=== PATIENT | female | born 1950 | race Caucasian/White ===

== ENCOUNTER 2017-08-11 09:47 | Inpatient (IN) | payer OTHER, MEDICAID, MEDICARE ==
[2017-08-11] MEDS: IPRATROPIUM (NEB) 0.5 MG/2.5 ML AMP INH (10:17)
[2017-08-11] MEDS: ALBUTEROL 0.5% (NEB) 2.5 MG/0.5 ML AMP INH (10:18)
[2017-08-11] MEDS: METHYLPREDNISOLONE 125 MG INJ IV (10:37)
[2017-08-11] MEDS: ASPIRIN 81 MG TAB PO (10:37)
[2017-08-11] MEDS: FUROSEMIDE 40 MG INJ IV ×2 (10:38→18:13)
[2017-08-11 10:49] LABS: ADD MAN DIFF? NO
[2017-08-11 10:57] LABS: WHITE BLOOD COUNT 9.1 10^3/ul (4.8-10.8)
[2017-08-11 10:57] LABS: BASOPHIL # 0.1 10^3/ul (0.0-0.1); BASOPHILS % 0.5 % (0.0-2.0); EOSINOPHILS # 0.3 10^3/ul (0.0-0.5); EOSINOPHILS % 2.9 % (0.0-7.0); HEMOGLOBIN 13.1 g/dl (12.0-16.0); MEAN CORPUSCULAR HEMOGLOBIN 31.6 pg (29.0-33.0); MEAN CORPUSCULAR HGB CONC 34.5 g/dl (32.0-37.0); MEAN CORPUSCULAR VOLUME 91.8 fl (82.0-101.0); MEAN PLATELET VOLUME 8.8 fl (7.4-10.4); MONOCYTE # 0.5 10^3/ul (0.3-0.9); MONOCYTES % 5.2 % (0.0-11.0); NEUTROPHIL # 6.3 10^3/ul (1.6-7.5); NEUTROPHILS % 69.2 % (39.0-77.0); PLATELET COUNT 280 10^3/UL (140-415); RED BLOOD COUNT 4.14 10^6/ul (4.20-5.40); RED CELL DISTRIBUTION WIDTH 11.8 % (11.5-14.5)
[2017-08-11 11:09] LABS: ALANINE AMINOTRANSFERASE 16 IU/L (13-69); ALBUMIN 4.1 g/dl (3.3-4.9); ALBUMIN/GLOBULIN RATIO 1.24; ALKALINE PHOSPHATASE 65 IU/L (42-121); ANION GAP 9 (8-16); ASPARTATE AMINO TRANSFERASE 20 IU/L (15-46); BILIRUBIN,INDIRECT 0.6 mg/dl (0-1.1); BILIRUBIN,TOTAL 0.6 mg/dl (0.2-1.3); BLOOD UREA NITROGEN 20 mg/dl (7-20); CALCIUM 9.7 mg/dl (8.4-10.2); CARBON DIOXIDE 32 mmol/L (21-31); CHLORIDE 103 mmol/L (97-110); CREATININE 0.65 mg/dl (0.44-1.00); GLUCOSE 141 mg/dl (70-220); LIPASE 67 U/L (23-300); POTASSIUM 4.6 mmol/L (3.5-5.1); SODIUM 139 mmol/L (135-144); TOTAL PROTEIN 7.4 g/dl (6.1-8.1)
[2017-08-11 11:21] LABS: B-TYPE NATRIURETIC PEPTIDE 1350 PG/ML (0-125)
[2017-08-11 11:24] LABS: TROPONIN-I < 0.012 ng/ml (0.00-0.12)
[2017-08-11] MEDS ORDERED: MAGNESIUM HYDROXIDE 30ML CUP PO (14:30)
[2017-08-11] MEDS ORDERED: NACL 0.9% 3 ML SYG IV (14:30)
[2017-08-11] MEDS ORDERED: GLUCAGON 1 MG INJ IM (14:30)
[2017-08-11] MEDS ORDERED: GLUCOSE GEL 15 GRAM TUBE BUCCAL (14:30)
[2017-08-11] MEDS ORDERED: ACETAMINOPHEN 500 MG TAB PO (14:30)
[2017-08-11] MEDS ORDERED: DICLOFENAC SODIUM 1% GEL 100 GM TUBE TP (14:30)
[2017-08-11] MEDS ORDERED: HYDROCODONE/APAP (5/325) TAB PO (14:30)
[2017-08-11] MEDS ORDERED: DEXTROSE 50% 50 ML SYRINGE IV ×2 (14:30)
[2017-08-11] MEDS ORDERED: GLUCOSE GEL 15 GRAM TUBE PO ×2 (14:30)
[2017-08-11 14:36] LABS: HEMOGLOBIN A1C 7.6 % (0-5.9)
[2017-08-11] MEDS: ACETAMINOPHEN 325 MG TAB PO (17:49)
[2017-08-11] MEDS: INSULIN ASPART [NOVOLOG] 3 ML PEN SC ×5 (17:59→23:22)
[2017-08-11 19:30] LABS: TROPONIN-I < 0.012 ng/ml (0.00-0.12)
[2017-08-11] MEDS: MOMETASONE 0.24 GM INHALER INH (20:51)
[2017-08-11] MEDS: CALCIUM CARBONATE 1.25 GM TAB PO (20:53)
[2017-08-11] MEDS: GABAPENTIN 100 MG CAP PO (20:53)
[2017-08-11] MEDS: MONTELUKAST 10 MG TAB PO (20:53)
[2017-08-11] MEDS ORDERED: GABAPENTIN 300 MG CAP PO (21:00)
[2017-08-11 22:34] LABS: GLUCOSE 485 mg/dl (70-220)
[2017-08-12 01:49] LABS: TROPONIN-I < 0.012 ng/ml (0.00-0.12)
[2017-08-12] MEDS: ACCU-CHEK XX (02:00)
[2017-08-12] MEDS: ALBUMIN HUMAN 25% 100 ML IV (05:24)
[2017-08-12] MEDS: FUROSEMIDE 40 MG INJ IV ×3 (05:25→18:21)
[2017-08-12 07:37] LABS: ADD MAN DIFF? NO
[2017-08-12 07:42] LABS: WHITE BLOOD COUNT 10.6 10^3/ul (4.8-10.8)
[2017-08-12 07:42] LABS: BASOPHILS % 0.3 % (0.0-2.0); HEMATOCRIT 32.8 % (37.0-47.0); HEMOGLOBIN 11.4 g/dl (12.0-16.0); LYMPHOCYTES # 1.9 10^3/ul (0.8-2.9); MEAN CORPUSCULAR HEMOGLOBIN 31.2 pg (29.0-33.0); MEAN CORPUSCULAR HGB CONC 34.8 g/dl (32.0-37.0); MEAN CORPUSCULAR VOLUME 89.9 fl (82.0-101.0); MONOCYTE # 0.5 10^3/ul (0.3-0.9); MONOCYTES % 4.8 % (0.0-11.0); NEUTROPHIL # 8.1 10^3/ul (1.6-7.5); NEUTROPHILS % 76.6 % (39.0-77.0); PLATELET COUNT 255 10^3/UL (140-415); RED BLOOD COUNT 3.65 10^6/ul (4.20-5.40); RED CELL DISTRIBUTION WIDTH 11.7 % (11.5-14.5)
[2017-08-12 08:05] LABS: ANION GAP 19 (8-16); BLOOD UREA NITROGEN 31 mg/dl (7-20); CALCIUM 10.2 mg/dl (8.4-10.2); CARBON DIOXIDE 27 mmol/L (21-31); CHLORIDE 97 mmol/L (97-110); CREATININE 0.67 mg/dl (0.44-1.00); GLUCOSE 230 mg/dl (70-220); MAGNESIUM 1.5 mg/dl (1.7-2.5); SODIUM 139 mmol/L (135-144)
[2017-08-12] MEDS: ENOXAPARIN 40 MG/0.4 ML SYG SC (08:25)
[2017-08-12] MEDS: INSULIN GLARGINE [LANtus] 3 ML PEN SC (08:26)
[2017-08-12] MEDS: INSULIN ASPART [NOVOLOG] 3 ML PEN SC ×7 (08:26→21:19)
[2017-08-12] MEDS: CALCIUM CARBONATE 1.25 GM TAB PO ×2 (08:30→21:15)
[2017-08-12] MEDS: CITALOPRAM 20 MG TAB PO (08:39)
[2017-08-12] MEDS: ASPIRIN (EC) 81 MG TAB PO (08:40)
[2017-08-12] MEDS: GABAPENTIN 100 MG CAP PO ×3 (08:40→21:15)
[2017-08-12] MEDS: MOMETASONE 0.24 GM INHALER INH ×2 (08:40→21:12)
[2017-08-12] MEDS: FAMOTIDINE 20 MG TAB PO (08:40)
[2017-08-12] MEDS ORDERED: LOSARTAN 50 MG TAB PO (09:00)
[2017-08-12] MEDS: MAGNESIUM OXIDE 400 MG TAB PO ×2 (11:44→14:06)
[2017-08-12] MEDS: ALBUTEROL HFA 8 GM INHALER INH (14:31)
[2017-08-12] MEDS ORDERED: NITROGLYCERIN (SL) 0.4 MG TAB (16:01)
[2017-08-12] MEDS ORDERED: morphine 2 MG INJ (16:02)
[2017-08-12] MEDS: NITROGLYCERIN (SL) 0.4 MG TAB SL (16:06)
[2017-08-12] MEDS: morphine 2 MG INJ IV (16:07)
[2017-08-12 16:18] LABS: ADD MAN DIFF? NO
[2017-08-12 16:21] LABS: WHITE BLOOD COUNT 17.1 10^3/ul (4.8-10.8)
[2017-08-12 16:21] LABS: BASOPHIL # 0.1 10^3/ul (0.0-0.1); BASOPHILS % 0.4 % (0.0-2.0); EOSINOPHILS # 0.1 10^3/ul (0.0-0.5); EOSINOPHILS % 0.3 % (0.0-7.0); HEMATOCRIT 37.2 % (37.0-47.0); HEMOGLOBIN 12.8 g/dl (12.0-16.0); LYMPHOCYTES # 4.5 10^3/ul (0.8-2.9); LYMPHOCYTES % 26.3 % (15.0-51.0); MEAN CORPUSCULAR HEMOGLOBIN 31.1 pg (29.0-33.0); MEAN CORPUSCULAR HGB CONC 34.4 g/dl (32.0-37.0); MEAN CORPUSCULAR VOLUME 90.3 fl (82.0-101.0); MEAN PLATELET VOLUME 8.2 fl (7.4-10.4); MONOCYTE # 0.5 10^3/ul (0.3-0.9); MONOCYTES % 3.2 % (0.0-11.0); NEUTROPHIL # 11.8 10^3/ul (1.6-7.5); NEUTROPHILS % 69.3 % (39.0-77.0); PLATELET COUNT 277 10^3/UL (140-415); RED BLOOD COUNT 4.12 10^6/ul (4.20-5.40); RED CELL DISTRIBUTION WIDTH 11.7 % (11.5-14.5)
[2017-08-12 16:44] LABS: ANION GAP 16 (8-16); BLOOD UREA NITROGEN 35 mg/dl (7-20); CALCIUM 9.9 mg/dl (8.4-10.2); CARBON DIOXIDE 32 mmol/L (21-31); CHLORIDE 93 mmol/L (97-110); CREATINE KINASE 46 IU/L (23-200); CREATININE 0.87 mg/dl (0.44-1.00); GLUCOSE 230 mg/dl (70-220); POTASSIUM 4.2 mmol/L (3.5-5.1); SODIUM 137 mmol/L (135-144)
[2017-08-12 16:45] LABS: MAGNESIUM 1.6 mg/dl (1.7-2.5)
[2017-08-12 16:56] LABS: CK INDEX 2.3; CK-MB 1.06 ng/ml (0.0-2.4)
[2017-08-12 17:02] LABS: TROPONIN-I < 0.012 ng/ml (0.00-0.12)
[2017-08-12] MEDS: MAGNESIUM SULFATE 2 GM/50 ML 50 ML IVPB (18:00)
[2017-08-12] MEDS: ENOXAPARIN 100 MG/ML SYG SC (18:20)
[2017-08-12 18:24] LABS: AADO2 Arterial 515.2 mmHg (7.0-24.0); Allen Test ACCEPTAB; Arterial Blood Gas Oxygen Sat 98.9 mmHG (95.0-98.0); Arterial COHb 0.3 % (0.0-3.0); Arterial Fraction of Oxyhgb 98.3 % (93.0-99.0); Arterial HCO3 29.9 mmol/L (22.0-26.0); Arterial MetHb 0.3 % (0.0-1.5); Arterial Total Hemglobin 13.2 g/dl (12.0-18.0); Arterial pCO2 50.6 mmhg (35-45); MODE MASK - NRB; Site Left Radial
[2017-08-12] MEDS ORDERED: ENOXAPARIN 100 MG/ML SYG SC (21:00)
[2017-08-12] MEDS: MONTELUKAST 10 MG TAB PO (21:15)
[2017-08-12 23:20] LABS: CREATINE KINASE 62 IU/L (23-200)
[2017-08-12 23:33] LABS: CK INDEX 2.4; CK-MB 1.49 ng/ml (0.0-2.4); TROPONIN-I 0.032 ng/ml (0.00-0.12)
[2017-08-13] MEDS: ACETAMINOPHEN 325 MG TAB PO (01:39)
[2017-08-13] MEDS: ACCU-CHEK XX (02:14)
[2017-08-13] MEDS: FUROSEMIDE 40 MG INJ IV ×2 (06:19→18:03)
[2017-08-13 06:48] LABS: ADD MAN DIFF? NO
[2017-08-13 06:51] LABS: BASOPHILS % 0.4 % (0.0-2.0); EOSINOPHILS # 0.1 10^3/ul (0.0-0.5); EOSINOPHILS % 1.3 % (0.0-7.0); HEMATOCRIT 35.9 % (37.0-47.0); HEMOGLOBIN 12.2 g/dl (12.0-16.0); LYMPHOCYTES # 2.3 10^3/ul (0.8-2.9); LYMPHOCYTES % 21.4 % (15.0-51.0); MEAN CORPUSCULAR HEMOGLOBIN 31.3 pg (29.0-33.0); MEAN CORPUSCULAR VOLUME 92.1 fl (82.0-101.0); MEAN PLATELET VOLUME 8.8 fl (7.4-10.4); MONOCYTE # 0.5 10^3/ul (0.3-0.9); MONOCYTES % 4.8 % (0.0-11.0); NEUTROPHIL # 7.8 10^3/ul (1.6-7.5); NEUTROPHILS % 71.8 % (39.0-77.0); PLATELET COUNT 255 10^3/UL (140-415); RED CELL DISTRIBUTION WIDTH 11.8 % (11.5-14.5)
[2017-08-13 06:51] LABS: WHITE BLOOD COUNT 10.8 10^3/ul (4.8-10.8)
[2017-08-13 07:10] LABS: CREATINE KINASE 50 IU/L (23-200)
[2017-08-13 07:13] LABS: ALANINE AMINOTRANSFERASE 18 IU/L (13-69); ALBUMIN 3.9 g/dl (3.3-4.9); ALBUMIN/GLOBULIN RATIO 1.39; ALKALINE PHOSPHATASE 55 IU/L (42-121); ANION GAP 14 (8-16); ASPARTATE AMINO TRANSFERASE 15 IU/L (15-46); BILIRUBIN,INDIRECT 1.3 mg/dl (0-1.1); BILIRUBIN,TOTAL 1.3 mg/dl (0.2-1.3); BLOOD UREA NITROGEN 36 mg/dl (7-20); CALCIUM 9.4 mg/dl (8.4-10.2); CARBON DIOXIDE 34 mmol/L (21-31); CHLORIDE 93 mmol/L (97-110); CREATININE 0.76 mg/dl (0.44-1.00); GLUCOSE 262 mg/dl (70-220); MAGNESIUM 1.6 mg/dl (1.7-2.5); PHOSPHORUS 5.3 mg/dl (2.5-4.9); POTASSIUM 3.9 mmol/L (3.5-5.1); SODIUM 137 mmol/L (135-144); TOTAL PROTEIN 6.7 g/dl (6.1-8.1)
[2017-08-13 07:20] LABS: CK INDEX 2.9; CK-MB 1.44 ng/ml (0.0-2.4); TROPONIN-I 0.031 ng/ml (0.00-0.12)
[2017-08-13] MEDS: MOMETASONE 0.24 GM INHALER INH ×2 (08:34→20:42)
[2017-08-13] MEDS: GABAPENTIN 100 MG CAP PO ×3 (08:35→20:42)
[2017-08-13] MEDS: CALCIUM CARBONATE 1.25 GM TAB PO ×2 (08:35→20:43)
[2017-08-13] MEDS: CITALOPRAM 20 MG TAB PO (08:35)
[2017-08-13] MEDS: ASPIRIN (EC) 81 MG TAB PO (08:35)
[2017-08-13] MEDS: FAMOTIDINE 20 MG TAB PO (08:35)
[2017-08-13] MEDS: INSULIN ASPART [NOVOLOG] 3 ML PEN SC ×7 (08:46→21:49)
[2017-08-13] MEDS: INSULIN GLARGINE [LANtus] 3 ML PEN SC (08:47)
[2017-08-13] MEDS: ENOXAPARIN 40 MG/0.4 ML SYG SC (08:47)
[2017-08-13] MEDS: LOSARTAN 50 MG TAB PO (17:25)
[2017-08-13] MEDS: MONTELUKAST 10 MG TAB PO (20:43)
[2017-08-14] MEDS: ACCU-CHEK XX (02:00)
[2017-08-14 06:43] LABS: ADD MAN DIFF? NO
[2017-08-14 06:46] LABS: WHITE BLOOD COUNT 7.5 10^3/ul (4.8-10.8)
[2017-08-14 06:46] LABS: BASOPHILS % 0.4 % (0.0-2.0); EOSINOPHILS # 0.1 10^3/ul (0.0-0.5); EOSINOPHILS % 1.5 % (0.0-7.0); HEMATOCRIT 36.4 % (37.0-47.0); HEMOGLOBIN 12.4 g/dl (12.0-16.0); LYMPHOCYTES # 2.2 10^3/ul (0.8-2.9); LYMPHOCYTES % 28.7 % (15.0-51.0); MEAN CORPUSCULAR HEMOGLOBIN 31.3 pg (29.0-33.0); MEAN CORPUSCULAR HGB CONC 34.1 g/dl (32.0-37.0); MEAN CORPUSCULAR VOLUME 91.9 fl (82.0-101.0); MEAN PLATELET VOLUME 8.8 fl (7.4-10.4); MONOCYTE # 0.4 10^3/ul (0.3-0.9); MONOCYTES % 5.1 % (0.0-11.0); NEUTROPHIL # 4.8 10^3/ul (1.6-7.5); PLATELET COUNT 254 10^3/UL (140-415); RED BLOOD COUNT 3.96 10^6/ul (4.20-5.40); RED CELL DISTRIBUTION WIDTH 11.6 % (11.5-14.5)
[2017-08-14] MEDS: FUROSEMIDE 40 MG INJ IV ×2 (07:01→17:45)
[2017-08-14 07:08] LABS: ANION GAP 16 (8-16); BLOOD UREA NITROGEN 32 mg/dl (7-20); CALCIUM 9.4 mg/dl (8.4-10.2); CARBON DIOXIDE 35 mmol/L (21-31); CHLORIDE 95 mmol/L (97-110); CREATININE 0.67 mg/dl (0.44-1.00); GLUCOSE 177 mg/dl (70-220); PHOSPHORUS 3.2 mg/dl (2.5-4.9); POTASSIUM 3.9 mmol/L (3.5-5.1); SODIUM 142 mmol/L (135-144)
[2017-08-14] MEDS: CITALOPRAM 20 MG TAB PO (08:23)
[2017-08-14] MEDS: CALCIUM CARBONATE 1.25 GM TAB PO ×2 (08:23→20:30)
[2017-08-14] MEDS: FAMOTIDINE 20 MG TAB PO (08:23)
[2017-08-14] MEDS: ASPIRIN (EC) 81 MG TAB PO (08:24)
[2017-08-14] MEDS: GABAPENTIN 100 MG CAP PO ×3 (08:24→20:30)
[2017-08-14] MEDS: MOMETASONE 0.24 GM INHALER INH ×2 (08:25→20:31)
[2017-08-14] MEDS: LOSARTAN 50 MG TAB PO (08:25)
[2017-08-14] MEDS: INSULIN ASPART [NOVOLOG] 3 ML PEN SC ×7 (08:42→20:41)
[2017-08-14] MEDS: ENOXAPARIN 40 MG/0.4 ML SYG SC (08:42)
[2017-08-14] MEDS: INSULIN GLARGINE [LANtus] 3 ML PEN SC (08:43)
[2017-08-14] MEDS ORDERED: LOSARTAN 50 MG TAB PO (09:00)
[2017-08-14] MEDS: ACETAMINOPHEN 325 MG TAB PO (17:44)
[2017-08-14] MEDS: MONTELUKAST 10 MG TAB PO (20:30)
[2017-08-14] MEDS: AMIODARONE 200 MG TAB PO (22:40)
[2017-08-15] MEDS: ACCU-CHEK XX (02:00)
[2017-08-15] MEDS: FUROSEMIDE 40 MG INJ IV (06:00)
[2017-08-15 07:44] LABS: ANION GAP 15 (8-16); BLOOD UREA NITROGEN 33 mg/dl (7-20); CALCIUM 9.1 mg/dl (8.4-10.2); CARBON DIOXIDE 33 mmol/L (21-31); CHLORIDE 95 mmol/L (97-110); CREATININE 0.67 mg/dl (0.44-1.00); GLUCOSE 187 mg/dl (70-220); MAGNESIUM 1.9 mg/dl (1.7-2.5); PHOSPHORUS 3.2 mg/dl (2.5-4.9); POTASSIUM 3.8 mmol/L (3.5-5.1); SODIUM 139 mmol/L (135-144)
[2017-08-15] MEDS: ASPIRIN (EC) 81 MG TAB PO (08:39)
[2017-08-15] MEDS: CITALOPRAM 20 MG TAB PO (08:39)
[2017-08-15] MEDS: GABAPENTIN 100 MG CAP PO ×3 (08:39→20:59)
[2017-08-15] MEDS: FAMOTIDINE 20 MG TAB PO (08:40)
[2017-08-15] MEDS: LOSARTAN 50 MG TAB PO (08:40)
[2017-08-15] MEDS: CALCIUM CARBONATE 1.25 GM TAB PO ×2 (08:40→20:59)
[2017-08-15] MEDS: ENOXAPARIN 40 MG/0.4 ML SYG SC (08:51)
[2017-08-15] MEDS: INSULIN GLARGINE [LANtus] 3 ML PEN SC (08:52)
[2017-08-15] MEDS: INSULIN ASPART [NOVOLOG] 3 ML PEN SC ×7 (08:52→20:59)
[2017-08-15] MEDS: MOMETASONE 0.24 GM INHALER INH ×2 (12:41→20:59)
[2017-08-15] MEDS: MONTELUKAST 10 MG TAB PO (20:59)
[2017-08-16] MEDS: ACCU-CHEK XX (02:00)
[2017-08-16] MEDS: GABAPENTIN 100 MG CAP PO ×3 (08:09→21:22)
[2017-08-16] MEDS: CITALOPRAM 20 MG TAB PO (08:10)
[2017-08-16] MEDS: DOCUSATE SODIUM 100 MG CAP PO (08:10)
[2017-08-16] MEDS: CALCIUM CARBONATE 1.25 GM TAB PO ×2 (08:10→21:22)
[2017-08-16] MEDS: ASPIRIN (EC) 81 MG TAB PO (08:10)
[2017-08-16] MEDS: FAMOTIDINE 20 MG TAB PO (08:10)
[2017-08-16] MEDS: BISACODYL (EC) 5 MG TAB PO (08:10)
[2017-08-16] MEDS: MOMETASONE 0.24 GM INHALER INH ×2 (08:11→21:22)
[2017-08-16] MEDS: INSULIN ASPART [NOVOLOG] 3 ML PEN SC ×7 (08:17→21:00)
[2017-08-16] MEDS: ENOXAPARIN 40 MG/0.4 ML SYG SC (08:17)
[2017-08-16] MEDS: INSULIN GLARGINE [LANtus] 3 ML PEN SC (08:18)
[2017-08-16] MEDS: LOSARTAN 25 MG TAB PO (12:08)
[2017-08-16] MEDS: FUROSEMIDE 40 MG INJ IV (12:08)
[2017-08-16] MEDS: MONTELUKAST 10 MG TAB PO (21:22)
[2017-08-16] MEDS: ACETAMINOPHEN 325 MG TAB PO (21:22)
[2017-08-17] MEDS: ACCU-CHEK XX (02:00)
[2017-08-17] MEDS: CITALOPRAM 20 MG TAB PO (08:11)
[2017-08-17] MEDS: LOSARTAN 25 MG TAB PO (08:11)
[2017-08-17] MEDS: CALCIUM CARBONATE 1.25 GM TAB PO (08:11)
[2017-08-17] MEDS: FAMOTIDINE 20 MG TAB PO (08:11)
[2017-08-17] MEDS: ASPIRIN (EC) 81 MG TAB PO (08:11)
[2017-08-17] MEDS: GABAPENTIN 100 MG CAP PO ×2 (08:11→12:19)
[2017-08-17] MEDS: FUROSEMIDE 40 MG INJ IV (08:12)
[2017-08-17] MEDS: MOMETASONE 0.24 GM INHALER INH (08:12)
[2017-08-17] MEDS: INSULIN GLARGINE [LANtus] 3 ML PEN SC (08:16)
[2017-08-17] MEDS: INSULIN ASPART [NOVOLOG] 3 ML PEN SC ×4 (08:16→12:36)
[2017-08-17] MEDS: ENOXAPARIN 40 MG/0.4 ML SYG SC (08:16)
== END 2017-08-17 17:32 | disposition home or self-care (01) | DRG 292 ==
LOC: E/R 09:47 → TEL 12:09
DX: I11.0 Hypertensive heart disease with heart failure (principal); E87.2 Acidosis; I47.2 Ventricular tachycardia; I50.23 Acute on chronic systolic (congestive) heart failure; I42.9 Cardiomyopathy, unspecified; E11.9 Type 2 diabetes mellitus without complications; F32.9 Major depressive disorder, single episode, unspecified; Z79.4 Long term (current) use of insulin; K21.9 Gastro-esophageal reflux disease without esophagitis
CPT/HCPCS: 36415; 36600; 71045; 74018; 80048; 80053; 82550; 82553; 82803; 82947; 82962; 83036; 83690; 83735; 83880; 84100; 84484; 85025; 85378; 87400; 92610; 93005; 93306; 94644; 96374; 96375; 97161; 99285-25

== ENCOUNTER 2017-10-12 16:19 | Emergency (ER) | payer OTHER ==
[2017-10-12 19:53] LABS: ADD MAN DIFF? NO
[2017-10-12 19:55] LABS: WHITE BLOOD COUNT 8.6 10^3/ul (4.8-10.8)
[2017-10-12 19:55] LABS: BASOPHIL # 0.1 10^3/ul (0.0-0.1); BASOPHILS % 0.8 % (0.0-2.0); EOSINOPHILS # 0.2 10^3/ul (0.0-0.5); EOSINOPHILS % 2.7 % (0.0-7.0); HEMATOCRIT 37.9 % (37.0-47.0); HEMOGLOBIN 12.8 g/dl (12.0-16.0); LYMPHOCYTES # 2.8 10^3/ul (0.8-2.9); LYMPHOCYTES % 32.2 % (15.0-51.0); MEAN CORPUSCULAR HEMOGLOBIN 31.8 pg (29.0-33.0); MEAN CORPUSCULAR HGB CONC 33.8 g/dl (32.0-37.0); MEAN PLATELET VOLUME 8.6 fl (7.4-10.4); MONOCYTE # 0.6 10^3/ul (0.3-0.9); MONOCYTES % 7.3 % (0.0-11.0); NEUTROPHIL # 4.9 10^3/ul (1.6-7.5); NEUTROPHILS % 56.8 % (39.0-77.0); PLATELET COUNT 313 10^3/UL (140-415); RED BLOOD COUNT 4.03 10^6/ul (4.20-5.40); RED CELL DISTRIBUTION WIDTH 12.3 % (11.5-14.5)
[2017-10-12] MEDS: ONDANSETRON 4 MG INJ IV (19:56)
[2017-10-12] MEDS: KETOROLAC 15 MG INJ IV (19:56)
[2017-10-12 20:02] LABS: ADD UMIC NO; UR AMORPHOUS CRYSTAL FEW /HPF (NONE SEEN); UR ASCORBIC ACID NEGATIVE (NEGATIVE); UR BILIRUBIN (Dip) NEGATIVE (NEGATIVE); UR BLOOD (Dip) NEGATIVE (NEGATIVE); UR CLARITY SLIGHTLY CLOUDY (CLEAR); UR COLOR STRAW (YELLOW); UR GLUCOSE (Dip) 1+ mg/dL (NEGATIVE); UR KETONES (Dip) NEGATIVE (NEGATIVE); UR LEUKOCYTE ESTERASE (Dip) NEGATIVE Leu/ul (NEGATIVE); UR NITRITE (Dip) NEGATIVE (NEGATIVE); UR RBC 1 /HPF (0-5); UR SPECIFIC GRAVITY (Dip) 1.011 (1.003-1.030); UR SQUAMOUS EPITHELIAL CELL FEW /HPF (FEW); UR TOTAL PROTEIN (Dip) NEGATIVE (NEGATIVE); UR UROBILINOGEN (Dip) NEGATIVE (NEGATIVE); UR WBC 1 /HPF (0-5)
[2017-10-12 20:04] LABS: ALANINE AMINOTRANSFERASE 21 IU/L (13-69); ALBUMIN 4.4 g/dl (3.3-4.9); ALBUMIN/GLOBULIN RATIO 1.18; ALKALINE PHOSPHATASE 88 IU/L (42-121); ANION GAP 14 (8-16); ASPARTATE AMINO TRANSFERASE 25 IU/L (15-46); BILIRUBIN,INDIRECT 0.7 mg/dl (0-1.1); BILIRUBIN,TOTAL 0.7 mg/dl (0.2-1.3); BLOOD UREA NITROGEN 16 mg/dl (7-20); CALCIUM 9.7 mg/dl (8.4-10.2); CARBON DIOXIDE 32 mmol/L (21-31); CHLORIDE 98 mmol/L (97-110); CREATININE 0.66 mg/dl (0.44-1.00); GLUCOSE 238 mg/dl (70-220); LIPASE 87 U/L (23-300); POTASSIUM 4.4 mmol/L (3.5-5.1); SODIUM 140 mmol/L (135-144); TOTAL PROTEIN 8.1 g/dl (6.1-8.1)
[2017-10-12 20:13] LABS: B-TYPE NATRIURETIC PEPTIDE 738 PG/ML (0-125)
[2017-10-12 20:14] LABS: TROPONIN-I < 0.012 ng/ml (0.000-0.120)
== END 2017-10-12 21:39 | disposition home or self-care (01) ==
LOC: E/R 16:19
DX: G44.209 Tension-type headache, unspecified, not intractable (principal); I10 Essential (primary) hypertension; E11.9 Type 2 diabetes mellitus without complications; I50.9 Heart failure, unspecified; J44.9 Chronic obstructive pulmonary disease, unspecified; Z79.4 Long term (current) use of insulin; Z79.82 Long term (current) use of aspirin; Z95.0 Presence of cardiac pacemaker
CPT/HCPCS: 36415; 71045; 80053; 81001; 81003; 83690; 83880; 84484; 85025; 93005; 96374; 96375; 99284-25

== ENCOUNTER 2018-03-10 02:42 | Observation (INO) | payer OTHER, MEDICAID ==
[2018-03-10] MEDS: MECLIZINE 12.5 MG TAB PO (05:00)
[2018-03-10 05:13] LABS: ADD MAN DIFF? NO
[2018-03-10 05:14] LABS: WHITE BLOOD COUNT 7.4 10^3/ul (4.8-10.8)
[2018-03-10 05:14] LABS: BASOPHILS % 0.5 % (0.0-2.0); EOSINOPHILS # 0.3 10^3/ul (0.0-0.5); EOSINOPHILS % 3.9 % (0.0-7.0); HEMATOCRIT 38.6 % (37.0-47.0); LYMPHOCYTES # 2.5 10^3/ul (0.8-2.9); MEAN CORPUSCULAR HEMOGLOBIN 32.3 pg (29.0-33.0); MEAN CORPUSCULAR HGB CONC 33.7 g/dl (32.0-37.0); MEAN CORPUSCULAR VOLUME 95.8 fl (82.0-101.0); MEAN PLATELET VOLUME 9.2 fl (7.4-10.4); MONOCYTE # 0.5 10^3/ul (0.3-0.9); MONOCYTES % 6.4 % (0.0-11.0); NEUTROPHIL # 4.1 10^3/ul (1.6-7.5); NEUTROPHILS % 54.9 % (39.0-77.0); PLATELET COUNT 252 10^3/UL (140-415); RED BLOOD COUNT 4.03 10^6/ul (4.20-5.40)
[2018-03-10 05:21] LABS: ANION GAP 7 (5-13); BLOOD UREA NITROGEN 14 mg/dl (7-20); CALCIUM 9.1 mg/dl (8.4-10.2); CARBON DIOXIDE 31 mmol/L (21-31); CHLORIDE 103 mmol/L (97-110); CREATININE 0.63 mg/dl (0.44-1.00); Estimated GFR > 60 mL/min (>60); GLUCOSE 114 mg/dl (70-220); MAGNESIUM 1.9 mg/dl (1.7-2.5); POTASSIUM 4.4 mmol/L (3.5-5.1); SODIUM 141 mmol/L (135-144)
[2018-03-10 05:33] LABS: B-TYPE NATRIURETIC PEPTIDE 476 PG/ML (0-125); TROPONIN-I < 0.012 ng/ml (0.000-0.120)
[2018-03-10] MEDS ORDERED: SOD CHLORIDE 0.9% 1,000 ML IV (06:24)
[2018-03-10] MEDS ORDERED: ONDANSETRON (ODT) 4 MG TAB ODT (06:30)
[2018-03-10] MEDS ORDERED: ACETAMINOPHEN 500 MG TAB PO (06:30)
[2018-03-10] MEDS ORDERED: NACL 0.9% 3 ML SYG IV (06:30)
[2018-03-10] MEDS ORDERED: ALBUTEROL HFA 8 GM INHALER INH (06:30)
[2018-03-10] MEDS ORDERED: SOD CHLORIDE 0.9% 500 ML IV (07:00)
[2018-03-10 09:17] LABS: CREATINE KINASE 22 IU/L (23-200)
[2018-03-10 09:30] LABS: CK INDEX 3.2; CK-MB 0.71 ng/ml (0.0-2.4); TROPONIN-I < 0.012 ng/ml (0.000-0.120)
[2018-03-10 09:34] LABS: FREE T4 (FREE THYROXINE) 0.97 ng/dl (0.78-2.44)
[2018-03-10 09:35] LABS: FREE T3 3.97 pg/ml (2.77-5.27)
[2018-03-10] MEDS: FAMOTIDINE 20 MG TAB PO (10:54)
[2018-03-10] MEDS: CITALOPRAM 20 MG TAB PO (10:54)
[2018-03-10] MEDS: ASPIRIN (EC) 81 MG TAB PO (10:54)
[2018-03-10] MEDS: CALCIUM CARBONATE 1.25 GM TAB PO ×2 (10:55→21:23)
[2018-03-10] MEDS: LOSARTAN 25 MG TAB PO (10:55)
[2018-03-10] MEDS: INSULIN GLARGINE [LANTus] (100 UNITS/ML) SYG SC (11:05)
[2018-03-10] MEDS: INSULIN ASPART [NOVOLOG] 3 ML PEN SC ×3 (11:06→21:35)
[2018-03-10] MEDS: ACETAMINOPHEN 325 MG TAB PO (11:32)
[2018-03-10] MEDS: HEPARIN 5,000 UNIT/1 ML VIAL SC ×2 (14:00→21:34)
[2018-03-10 14:02] LABS: CREATINE KINASE 21 IU/L (23-200)
[2018-03-10 14:14] LABS: CK-MB 0.43 ng/ml (0.0-2.4); TROPONIN-I < 0.012 ng/ml (0.000-0.120)
[2018-03-10] MEDS ORDERED: HEPARIN 5,000 UNIT/0.5 ML VIAL ×2 (15:20→21:18)
[2018-03-10] MEDS ORDERED: GLUCOSE GEL 15 GRAM TUBE PO ×2 (16:30)
[2018-03-10] MEDS ORDERED: GLUCOSE GEL 15 GRAM TUBE BUCCAL (16:30)
[2018-03-10] MEDS ORDERED: GLUCAGON 1 MG INJ IM (16:30)
[2018-03-10] MEDS ORDERED: DEXTROSE 50% 50 ML SYRINGE IV ×2 (16:30)
[2018-03-10 19:11] LABS: CREATINE KINASE 26 IU/L (23-200)
[2018-03-10 19:24] LABS: CK INDEX 2.3; CK-MB 0.61 ng/ml (0.0-2.4); TROPONIN-I < 0.012 ng/ml (0.000-0.120)
[2018-03-10] MEDS: ATORVASTATIN 10 MG TAB PO (21:23)
[2018-03-10] MEDS: MONTELUKAST 10 MG TAB PO (21:24)
[2018-03-11] MEDS: ACCU-CHEK XX (02:00)
[2018-03-11] MEDS ORDERED: HEPARIN 5,000 UNIT/0.5 ML VIAL ×3 (05:28→21:02)
[2018-03-11] MEDS: HEPARIN 5,000 UNIT/1 ML VIAL SC ×3 (05:31→21:06)
[2018-03-11 06:10] LABS: ADD MAN DIFF? NO
[2018-03-11 06:22] LABS: WHITE BLOOD COUNT 5.2 10^3/ul (4.8-10.8)
[2018-03-11 06:22] LABS: BASOPHIL # 0.1 10^3/ul (0.0-0.1); EOSINOPHILS # 0.2 10^3/ul (0.0-0.5); EOSINOPHILS % 4.1 % (0.0-7.0); HEMATOCRIT 36.2 % (37.0-47.0); HEMOGLOBIN 11.9 g/dl (12.0-16.0); LYMPHOCYTES # 2.4 10^3/ul (0.8-2.9); LYMPHOCYTES % 46.7 % (15.0-51.0); MEAN CORPUSCULAR HEMOGLOBIN 31.4 pg (29.0-33.0); MEAN CORPUSCULAR HGB CONC 32.9 g/dl (32.0-37.0); MEAN CORPUSCULAR VOLUME 95.5 fl (82.0-101.0); MEAN PLATELET VOLUME 8.8 fl (7.4-10.4); MONOCYTE # 0.4 10^3/ul (0.3-0.9); MONOCYTES % 8.1 % (0.0-11.0); NEUTROPHIL # 2.1 10^3/ul (1.6-7.5); NEUTROPHILS % 39.9 % (39.0-77.0); PLATELET COUNT 239 10^3/UL (140-415); RED BLOOD COUNT 3.79 10^6/ul (4.20-5.40); RED CELL DISTRIBUTION WIDTH 11.9 % (11.5-14.5)
[2018-03-11 06:40] LABS: ALANINE AMINOTRANSFERASE 15 IU/L (13-69); ALBUMIN 3.6 g/dl (3.3-4.9); ALBUMIN/GLOBULIN RATIO 1.44; ALKALINE PHOSPHATASE 65 IU/L (42-121); ANION GAP 6 (5-13); ASPARTATE AMINO TRANSFERASE 27 IU/L (15-46); BILIRUBIN,INDIRECT 0.5 mg/dl (0-1.1); BILIRUBIN,TOTAL 0.5 mg/dl (0.2-1.3); BLOOD UREA NITROGEN 15 mg/dl (7-20); CALCIUM 8.8 mg/dl (8.4-10.2); CARBON DIOXIDE 29 mmol/L (21-31); CHLORIDE 103 mmol/L (97-110); CHOL/HDL RATIO 2.4 RATIO; CHOLESTEROL 139 mg/dl (100-200); CREATININE 0.61 mg/dl (0.44-1.00); Estimated GFR > 60 mL/min (>60); GLUCOSE 196 mg/dl (70-220); HDL CHOLESTEROL 56 mg/dl (35-98); LDL CHOLESTEROL,CALCULATED 63 mg/dl; MAGNESIUM 1.9 mg/dl (1.7-2.5); POTASSIUM 4.5 mmol/L (3.5-5.1); SODIUM 138 mmol/L (135-144); TOTAL PROTEIN 6.1 g/dl (6.1-8.1); TRIGLYCERIDES 99 mg/dl (0-149)
[2018-03-11] MEDS: INSULIN ASPART [NOVOLOG] 3 ML PEN SC ×6 (08:04→21:00)
[2018-03-11] MEDS: MOMETASONE 0.24 GM INHALER INH ×2 (09:45→21:00)
[2018-03-11] MEDS: LOSARTAN 25 MG TAB PO (09:46)
[2018-03-11] MEDS: FAMOTIDINE 20 MG TAB PO (09:46)
[2018-03-11] MEDS: CITALOPRAM 20 MG TAB PO (09:46)
[2018-03-11] MEDS: ASPIRIN (EC) 81 MG TAB PO (09:46)
[2018-03-11] MEDS: CALCIUM CARBONATE 1.25 GM TAB PO ×2 (09:46→20:59)
[2018-03-11] MEDS: INSULIN GLARGINE [LANTus] (100 UNITS/ML) SYG SC (11:54)
[2018-03-11] MEDS: MONTELUKAST 10 MG TAB PO (20:59)
[2018-03-11] MEDS: ATORVASTATIN 10 MG TAB PO (20:59)
[2018-03-12] MEDS: ACCU-CHEK XX (02:00)
[2018-03-12] MEDS ORDERED: HEPARIN 5,000 UNIT/0.5 ML VIAL (05:57)
[2018-03-12] MEDS: ALENDRONATE 70 MG TAB PO (06:00)
[2018-03-12] MEDS: HEPARIN 5,000 UNIT/1 ML VIAL SC (06:05)
[2018-03-12 06:42] LABS: ADD MAN DIFF? NO
[2018-03-12 06:44] LABS: WHITE BLOOD COUNT 5.7 10^3/ul (4.8-10.8)
[2018-03-12 06:44] LABS: BASOPHIL # 0.1 10^3/ul (0.0-0.1); BASOPHILS % 0.9 % (0.0-2.0); EOSINOPHILS # 0.3 10^3/ul (0.0-0.5); EOSINOPHILS % 4.4 % (0.0-7.0); HEMATOCRIT 35.3 % (37.0-47.0); LYMPHOCYTES # 2.6 10^3/ul (0.8-2.9); LYMPHOCYTES % 45.8 % (15.0-51.0); MEAN CORPUSCULAR HEMOGLOBIN 32.2 pg (29.0-33.0); MEAN CORPUSCULAR VOLUME 94.6 fl (82.0-101.0); MEAN PLATELET VOLUME 8.8 fl (7.4-10.4); MONOCYTE # 0.6 10^3/ul (0.3-0.9); MONOCYTES % 9.9 % (0.0-11.0); NEUTROPHIL # 2.2 10^3/ul (1.6-7.5); NEUTROPHILS % 38.8 % (39.0-77.0); PLATELET COUNT 245 10^3/UL (140-415); RED BLOOD COUNT 3.73 10^6/ul (4.20-5.40); RED CELL DISTRIBUTION WIDTH 11.8 % (11.5-14.5)
[2018-03-12 07:26] LABS: ANION GAP 7 (5-13); BLOOD UREA NITROGEN 14 mg/dl (7-20); CALCIUM 9.1 mg/dl (8.4-10.2); CARBON DIOXIDE 29 mmol/L (21-31); CHLORIDE 101 mmol/L (97-110); CREATININE 0.56 mg/dl (0.44-1.00); Estimated GFR > 60 mL/min (>60); GLUCOSE 142 mg/dl (70-220); POTASSIUM 4.3 mmol/L (3.5-5.1); SODIUM 137 mmol/L (135-144)
[2018-03-12] MEDS: INSULIN ASPART [NOVOLOG] 3 ML PEN SC ×2 (07:38→08:34)
[2018-03-12] MEDS: ASPIRIN (EC) 81 MG TAB PO (09:05)
[2018-03-12] MEDS: FUROSEMIDE 20 MG TAB PO (09:05)
[2018-03-12] MEDS: FAMOTIDINE 20 MG TAB PO (09:05)
[2018-03-12] MEDS: CITALOPRAM 20 MG TAB PO (09:05)
[2018-03-12] MEDS: LOSARTAN 25 MG TAB PO (09:05)
[2018-03-12] MEDS: CALCIUM CARBONATE 1.25 GM TAB PO (09:06)
[2018-03-12] MEDS: INSULIN GLARGINE [LANTus] (100 UNITS/ML) SYG SC (09:09)
[2018-03-12] MEDS: MOMETASONE 0.24 GM INHALER INH (09:11)
== END 2018-03-12 11:40 | disposition home or self-care (01) ==
LOC: TEL 08:32 → E/R 02:42 → TEL 05:54
DX: R42 Dizziness and giddiness (principal); R55 Syncope and collapse; E78.5 Hyperlipidemia, unspecified; E11.649 Type 2 diabetes mellitus with hypoglycemia without coma; M81.0 Age-related osteoporosis without current pathological fracture; I50.9 Heart failure, unspecified; I42.9 Cardiomyopathy, unspecified; I11.0 Hypertensive heart disease with heart failure; I50.22 Chronic systolic (congestive) heart failure; F32.9 Major depressive disorder, single episode, unspecified; Z79.82 Long term (current) use of aspirin; Z79.4 Long term (current) use of insulin; Z95.0 Presence of cardiac pacemaker
CPT/HCPCS: 36415; 70450; 71045; 80048; 80053; 80061; 82550; 82553; 82962; 83036; 83735; 83880; 84439; 84443; 84481; 84484; 85025; 93005; 93306; 93880; 97116; 97161; 97530; 99285-25; G0378

== ENCOUNTER 2018-05-22 14:01 | Emergency (ER) | payer OTHER, MEDICAID ==
[2018-05-22 17:02] LABS: ADD MAN DIFF? NO
[2018-05-22 17:18] LABS: BASOPHILS % 0.6 % (0.0-2.0); EOSINOPHILS # 0.1 10^3/ul (0.0-0.5); EOSINOPHILS % 1.8 % (0.0-7.0); HEMATOCRIT 36.3 % (37.0-47.0); LYMPHOCYTES # 2.3 10^3/ul (0.8-2.9); LYMPHOCYTES % 33.8 % (15.0-51.0); MEAN CORPUSCULAR HEMOGLOBIN 31.4 pg (29.0-33.0); MEAN CORPUSCULAR HGB CONC 33.1 g/dl (32.0-37.0); MEAN PLATELET VOLUME 9.4 fl (7.4-10.4); MONOCYTE # 0.4 10^3/ul (0.3-0.9); MONOCYTES % 6.5 % (0.0-11.0); NEUTROPHIL # 3.9 10^3/ul (1.6-7.5); PLATELET COUNT 206 10^3/UL (140-415); RED BLOOD COUNT 3.82 10^6/ul (4.20-5.40); RED CELL DISTRIBUTION WIDTH 11.8 % (11.5-14.5)
[2018-05-22 17:18] LABS: WHITE BLOOD COUNT 6.8 10^3/ul (4.8-10.8)
[2018-05-22 17:34] LABS: ALANINE AMINOTRANSFERASE 17 IU/L (13-69); ALBUMIN/GLOBULIN RATIO 1.33; ALKALINE PHOSPHATASE 62 IU/L (42-121); ANION GAP 10 (5-13); ASPARTATE AMINO TRANSFERASE 30 IU/L (15-46); BILIRUBIN,INDIRECT 0.3 mg/dl (0-1.1); BILIRUBIN,TOTAL 0.3 mg/dl (0.2-1.3); BLOOD UREA NITROGEN 14 mg/dl (7-20); CALCIUM 9.4 mg/dl (8.4-10.2); CARBON DIOXIDE 26 mmol/L (21-31); CHLORIDE 102 mmol/L (97-110); CREATININE 0.54 mg/dl (0.44-1.00); Estimated GFR > 60 mL/min (>60); GLUCOSE 164 mg/dl (70-220); LIPASE 52 U/L (23-300); POTASSIUM 4.4 mmol/L (3.5-5.1); SODIUM 138 mmol/L (135-144)
[2018-05-22 17:43] LABS: TROPONIN-I < 0.012 ng/ml (0.000-0.120)
[2018-05-22] MEDS: AZITHROMYCIN 250 MG TAB PO (18:49)
== END 2018-05-22 18:54 | disposition home or self-care (01) ==
LOC: E/R 14:01
DX: J18.9 Pneumonia, unspecified organism (principal); I10 Essential (primary) hypertension; E11.9 Type 2 diabetes mellitus without complications; Z79.82 Long term (current) use of aspirin; Z79.4 Long term (current) use of insulin; Z95.0 Presence of cardiac pacemaker
CPT/HCPCS: 36415; 71045; 80053; 83690; 84484; 85025; 93005; 99285-25

== ENCOUNTER 2018-06-21 16:25 | Emergency (ER) | payer MEDICARE, MEDICAID, OTHER ==
[2018-06-21 21:22] LABS: ADD MAN DIFF? NO
[2018-06-21 21:23] LABS: BASOPHILS % 0.4 % (0.0-2.0); EOSINOPHILS # 0.2 10^3/ul (0.0-0.5); EOSINOPHILS % 2.5 % (0.0-7.0); HEMATOCRIT 38.9 % (37.0-47.0); HEMOGLOBIN 12.9 g/dl (12.0-16.0); LYMPHOCYTES # 3.2 10^3/ul (0.8-2.9); LYMPHOCYTES % 44.2 % (15.0-51.0); MEAN CORPUSCULAR HEMOGLOBIN 30.8 pg (29.0-33.0); MEAN CORPUSCULAR HGB CONC 33.2 g/dl (32.0-37.0); MEAN CORPUSCULAR VOLUME 92.8 fl (82.0-101.0); MEAN PLATELET VOLUME 8.6 fl (7.4-10.4); MONOCYTE # 0.6 10^3/ul (0.3-0.9); MONOCYTES % 7.6 % (0.0-11.0); NEUTROPHIL # 3.3 10^3/ul (1.6-7.5); NEUTROPHILS % 45.2 % (39.0-77.0); PLATELET COUNT 227 10^3/UL (140-415); RED BLOOD COUNT 4.19 10^6/ul (4.20-5.40); RED CELL DISTRIBUTION WIDTH 11.8 % (11.5-14.5)
[2018-06-21 21:23] LABS: WHITE BLOOD COUNT 7.2 10^3/ul (4.8-10.8)
[2018-06-21] MEDS: morphine 2 MG INJ IV (21:27)
[2018-06-21] MEDS: ONDANSETRON 4 MG INJ IV (21:27)
[2018-06-21] MEDS: KETOROLAC 15 MG INJ IV (21:27)
[2018-06-21 21:40] LABS: ALANINE AMINOTRANSFERASE 12 IU/L (13-69); ALBUMIN 4.2 g/dl (3.3-4.9); ALBUMIN/GLOBULIN RATIO 1.35; ALKALINE PHOSPHATASE 56 IU/L (42-121); ANION GAP 10 (5-13); ASPARTATE AMINO TRANSFERASE 23 IU/L (15-46); BILIRUBIN,INDIRECT 0.4 mg/dl (0-1.1); BILIRUBIN,TOTAL 0.4 mg/dl (0.2-1.3); BLOOD UREA NITROGEN 18 mg/dl (7-20); CALCIUM 9.4 mg/dl (8.4-10.2); CARBON DIOXIDE 28 mmol/L (21-31); CHLORIDE 100 mmol/L (97-110); Estimated GFR > 60 mL/min (>60); GLUCOSE 152 mg/dl (70-220); LIPASE 78 U/L (23-300); POTASSIUM 4.3 mmol/L (3.5-5.1); SODIUM 138 mmol/L (135-144); TOTAL PROTEIN 7.3 g/dl (6.1-8.1)
[2018-06-21 21:52] LABS: TROPONIN-I < 0.012 ng/ml (0.000-0.120)
[2018-06-21] MEDS: morphine 4 MG/ML VIAL IV (22:55)
== END 2018-06-22 02:03 | disposition home or self-care (01) ==
LOC: E/R 06-22 02:03 → FTE 16:25
DX: I42.8 Other cardiomyopathies (principal); E11.9 Type 2 diabetes mellitus without complications; I11.0 Hypertensive heart disease with heart failure; I50.9 Heart failure, unspecified; R10.12 Left upper quadrant pain; Z79.4 Long term (current) use of insulin; Z79.82 Long term (current) use of aspirin; Z95.0 Presence of cardiac pacemaker
CPT/HCPCS: 36415; 71045; 74176; 80053; 83690; 84484; 85025; 93005; 96374; 96375; 99285-25